=== PATIENT | male | born 1995 | race Caucasian/White ===

== ENCOUNTER 2021-09-08 11:56 | Emergency (ER) | payer SELFPAY ==
[~2021-09-08] VITALS: Ht 177.8 cm; Wt 68.0 kg
== END 2021-09-08 15:30 | disposition home or self-care (01) ==
LOC: ER 12:10
DX: R10.13 Epigastric pain (principal); F17.290 Nicotine dependence, other tobacco product, uncomplicated; Z71.6 Tobacco abuse counseling; Z91.041 Radiographic dye allergy status
CPT/HCPCS: 93005; 99283